=== PATIENT | female | born 1960 | race Asian ===

== ENCOUNTER 2019-07-21 09:19 | Inpatient (IN) | payer MEDICAID ==
[~2019-07-21] VITALS: Ht 152.4 cm; Wt 46.0 kg
[2019-07-21 09:20] VITALS: BP_SYST 101
[2019-07-21] MEDS ORDERED: SODIUM POLYSTYRENE SULFONATE 15 GM/60 ML UDBTL PO ONE (09:45)
[2019-07-21] MEDS ORDERED: NACL 0.9% 1,000 ML IV ONE (09:45)
[2019-07-21] MEDS ORDERED: DEXTROSE 50% JECT 50 ML DISP.SYRIN IVP ONE (09:45)
[2019-07-21] MEDS ORDERED: INSULIN REGULAR, HUMAN 10 UNITS/0.1 ML INJ IVP ONE (09:45)
[2019-07-21 10:17] LABS: BASOPHILS # (AUTO) 0.1 K/uL (0.0-0.2); BASOPHILS % (AUTO) 0.8 % (0.0-2.0); EOSINOPHILS # (AUTO) 0.1 K/uL (0.0-0.4); EOSINOPHILS % (AUTO) 1.2 % (0.0-4.0); HEMATOCRIT 23.2 % (36-48); HEMOGLOBIN 7.7 g/dL (12.0-16.0); LYMPHOCYTES # (AUTO) 1.8 K/uL (1.0-5.5); LYMPHOCYTES % (AUTO) 20.9 % (20.5-51.5); MEAN CORPUSCULAR HEMOGLOBIN 31 pg (27-31); MEAN CORPUSCULAR HGB CONC 33 % (32-36); MEAN CORPUSCULAR VOLUME 94 fL (79.0-98.0); MONOCYTES # (AUTO) 0.4 K/uL (0.0-1.0); MONOCYTES % (AUTO) 4.4 % (1.7-9.3); NEUTROPHILS # (AUTO) 6.2 K/uL (1.8-7.7); NEUTROPHILS % (AUTO) 72.7 % (40.0-70.0); PLATELET COUNT (AUTO) 378 K/uL (130-430); RED BLOOD CELL COUNT(AUTO) 2.48 MIL/uL (4.2-6.2); RED CELL DISTRIBUTION WIDTH 13.3 % (9.0-15.0); WHITE BLOOD COUNT (AUTO) 8.6 K/uL (4.8-10.8)
[2019-07-21 10:35] LABS: ALBUMIN 2.9 g/dL (3.4-4.8); CREATININE 1.27 mg/dL (0.55-1.30); POTASSIUM 4.8 mmol/L (3.5-5.1); TOTAL BILIRUBIN 0.2 mg/dL (0.0-1.0)
[2019-07-21 10:41] LABS: CALCIUM 8.9 mg/dL (8.4-11.0)
[2019-07-21] MEDS ORDERED: 0.45% NACL 1,000 ML IV ONE (14:15)
[2019-07-21] MEDS ORDERED: ARGI1POW13 PO (14:40)
[2019-07-21] MEDS ORDERED: ASCO500T20 PO (14:40)
[2019-07-21] MEDS ORDERED: CAT.1 PO (14:40)
[2019-07-21] MEDS ORDERED: BENZ-16 PO (14:40)
[2019-07-21] MEDS ORDERED: ACET-2165 PO (14:40)
[2019-07-21] MEDS ORDERED: FER300L PO (14:40)
[2019-07-21] MEDS ORDERED: BISA10SU61 RC (14:40)
[2019-07-21] MEDS ORDERED: CALC-823 PO (14:40)
[2019-07-21] MEDS ORDERED: DIPH25CA83 PO (14:40)
[2019-07-21] MEDS ORDERED: DOCU-144 PO (14:40)
[2019-07-21] MEDS ORDERED: DEXT50DI5 IV (14:40)
[2019-07-21 14:48] LABS: BASOPHILS % (AUTO) 0.5 % (0.0-2.0); EOSINOPHILS # (AUTO) 0.1 K/uL (0.0-0.4); EOSINOPHILS % (AUTO) 1.5 % (0.0-4.0); HEMATOCRIT 23.8 % (36-48); HEMOGLOBIN 7.8 g/dL (12.0-16.0); LYMPHOCYTES # (AUTO) 1.5 K/uL (1.0-5.5); LYMPHOCYTES % (AUTO) 20.6 % (20.5-51.5); MEAN CORPUSCULAR HEMOGLOBIN 31 pg (27-31); MEAN CORPUSCULAR HGB CONC 33 % (32-36); MEAN CORPUSCULAR VOLUME 95 fL (79.0-98.0); MONOCYTES # (AUTO) 0.4 K/uL (0.0-1.0); MONOCYTES % (AUTO) 6.1 % (1.7-9.3); NEUTROPHILS # (AUTO) 5.1 K/uL (1.8-7.7); NEUTROPHILS % (AUTO) 71.3 % (40.0-70.0); PLATELET COUNT (AUTO) 349 K/uL (130-430); RED BLOOD CELL COUNT(AUTO) 2.52 MIL/uL (4.2-6.2); RED CELL DISTRIBUTION WIDTH 13.6 % (9.0-15.0); WHITE BLOOD COUNT (AUTO) 7.1 K/uL (4.8-10.8)
[2019-07-21] MEDS ORDERED: [UNRECOGNIZED DRUG - CODE] PO (14:57)
[2019-07-21] MEDS ORDERED: ANT30 PO (14:57)
[2019-07-21] MEDS ORDERED: NOR10 PO (14:57)
[2019-07-21] MEDS ORDERED: INSU100V7 IJ (14:57)
[2019-07-21] MEDS ORDERED: DEXT33GE7 PO (14:57)
[2019-07-21] MEDS ORDERED: ONDA4TAB5 PO (14:57)
[2019-07-21] MEDS ORDERED: FURO-149 PO (14:57)
[2019-07-21] MEDS ORDERED: MOM PO (14:57)
[2019-07-21] MEDS ORDERED: SITA50TA3 PO (14:57)
[2019-07-21] MEDS ORDERED: METO50TA7 PO (14:57)
[2019-07-21] MEDS ORDERED: LURA40TA PO (14:57)
[2019-07-21] MEDS ORDERED: LOM2.5 PO (14:57)
[2019-07-21] MEDS ORDERED: LISI10TA5 PO (14:57)
[2019-07-21] MEDS ORDERED: FLEETMO RC (14:57)
[2019-07-21] MEDS ORDERED: POTA10TA15 PO (14:57)
[2019-07-21] MEDS ORDERED: GLUC1KIT IJ (14:57)
[2019-07-21 14:59] LABS: BILIRUBIN,URINE NEGATIVE (NEGATIVE); BLOOD, URINE TRACE (NEGATIVE); CLARITY/URINE CLEAR (CLEAR); COLOR,URINE YELLOW (YELLOW); GLUCOSE,URINE NEGATIVE (NEGATIVE); KETONES,URINE NEGATIVE (NEGATIVE); LEUKOCYTE ESTERASE ,URINE 3+ (NEGATIVE); NITRITE, URINE POSITIVE (NEGATIVE); PROTEIN URINE 1+ (NEGATIVE); UROBILINOGEN,URINE 0.2 (0.2-1.0)
[2019-07-21 15:03] LABS: ANION GAP 11 (5-15); CALCIUM 8.2 mg/dL (8.4-11.0); CHLORIDE 104 mmol/L (98-107); GLUCOSE 114 mg/dL (70-99); POTASSIUM 4.3 mmol/L (3.5-5.1); SODIUM SERUM 136 mmol/L (136-145); UREA NITROGEN, BLOOD 52 mg/dL (8-21)
[2019-07-21 15:05] LABS: PROTHROMBIN TIME 9.7 SECS (9.5-12.5)
[2019-07-21 15:06] LABS: GFR AFRICAN AMERICAN 73 mL/min (>90)
[2019-07-21 15:08] LABS: ALANINE AMINOTRANSFERASE 18 U/L (12-78); ALBUMIN 2.9 g/dL (3.4-4.8); ASPARTATE AMINOTRANSFERASE 9 U/L (10-37); BILIRUBIN,DIRECT < 0.1 mg/dL (0.0-0.3); TOTAL BILIRUBIN 0.2 mg/dL (0.0-1.0)
[2019-07-21 15:31] LABS: BACTERIA,URINE MODERATE /HPF (None Seen); RBC,URINE 0-3 /HPF (0-3); WBC,URINE 50-80 /HPF (0-3)
[2019-07-21 15:35] LABS: MUCUS,URINE None Seen /LPF (None Seen); URINE AMORPHOUS URATE 3+ /HPF (None Seen)
[2019-07-21] MEDS ORDERED: GLUCOSE 15 GM GEL (in 37.5 GM TUBE) PO PRN ×2 (17:00→22:30)
[2019-07-21] MEDS ORDERED: DEXTROSE 50%-WATER 50 ML DISP.SYRIN IVP PRN (17:00)
[2019-07-21] MEDS ORDERED: D5W 1,000 ML IV PRN ×2 (17:00→22:18)
[2019-07-21 20:14] VITALS: BP_SYST 143
[2019-07-21] MEDS ORDERED: DEXTROSE 50% JECT 50 ML DISP.SYRIN IVP PRN (22:30)
[2019-07-21] MEDS: INSULIN REGULAR, HUMAN 100 UNITS/ML, 10 ML VIAL (humuLIN R) SUBCUT PRN (22:47)
[2019-07-22 01:43] VITALS: BP_SYST 140
[2019-07-22 08:00] VITALS: BP_SYST 140
[2019-07-22] MEDS ORDERED: LEVOFLOXACIN 500 MG TABLET PO ONE (11:30)
[2019-07-22] MEDS: INSULIN REGULAR, HUMAN 100 UNITS/ML, 10 ML VIAL (humuLIN R) SUBCUT PRN ×2 (11:47→23:16)
[2019-07-22] MEDS: NACL 0.9% 1,000 ML IV SCH (11:58)
[2019-07-22 12:29] VITALS: BP_SYST 151
[2019-07-22 14:53] LABS: CALCIUM 8.1 mg/dL (8.4-11.0); CREATININE 0.92 mg/dL (0.55-1.30); POTASSIUM 4.5 mmol/L (3.5-5.1)
[2019-07-22 16:05] VITALS: BP_SYST 141
[2019-07-22 17:34] LABS: URINE SODIUM, RANDOM 60 mmol/L (40-220)
[2019-07-22 20:05] VITALS: BP_SYST 142
[2019-07-23 00:28] VITALS: BP_SYST 150
[2019-07-23] MEDS: NACL 0.9% 1,000 ML IV SCH ×2 (02:15→14:10)
[2019-07-23 07:06] LABS: BASOPHILS % (AUTO) 0.4 % (0.0-2.0); EOSINOPHILS # (AUTO) 0.1 K/uL (0.0-0.4); HEMOGLOBIN 7.2 g/dL (12.0-16.0); LYMPHOCYTES # (AUTO) 1.2 K/uL (1.0-5.5); LYMPHOCYTES % (AUTO) 18.3 % (20.5-51.5); MEAN CORPUSCULAR HEMOGLOBIN 32 pg (27-31); MEAN CORPUSCULAR HGB CONC 34 % (32-36); MEAN CORPUSCULAR VOLUME 94 fL (79.0-98.0); MONOCYTES # (AUTO) 0.3 K/uL (0.0-1.0); MONOCYTES % (AUTO) 4.2 % (1.7-9.3); NEUTROPHILS # (AUTO) 4.9 K/uL (1.8-7.7); NEUTROPHILS % (AUTO) 75.1 % (40.0-70.0); PLATELET COUNT (AUTO) 343 K/uL (130-430); RED BLOOD CELL COUNT(AUTO) 2.29 MIL/uL (4.2-6.2); RED CELL DISTRIBUTION WIDTH 13.3 % (9.0-15.0); WHITE BLOOD COUNT (AUTO) 6.6 K/uL (4.8-10.8)
[2019-07-23 07:18] LABS: HEMATOCRIT 21.4 % (36-48)
[2019-07-23 07:38] LABS: CREATININE 0.9 mg/dL (0.55-1.30); PHOSPHORUS 2.9 mg/dL (2.7-4.5); POTASSIUM 4.5 mmol/L (3.5-5.1)
[2019-07-23 07:57] LABS: TOTAL IRON BIND. CAPACITY 215 ug/dL (250-450)
[2019-07-23 08:12] VITALS: BP_SYST 156
[2019-07-23] MEDS: LEVOFLOXACIN 500 MG TABLET PO SCH (10:58)
[2019-07-23 12:00] VITALS: BP_SYST 152
[2019-07-23] MEDS ORDERED: BISACODYL 10 MG/SUPPOSITORY RC PRN (16:30)
[2019-07-23] MEDS ORDERED: DOCUSATE SODIUM 100 MG CAPSULE PO PRN (16:30)
[2019-07-23] MEDS ORDERED: cloNIDine HCL 0.1 MG TABLET PO PRN (16:30)
[2019-07-23] MEDS ORDERED: amLODIPine BESYLATE 10 MG TABLET PO ONE (16:30)
[2019-07-23 16:52] VITALS: BP_SYST 164
[2019-07-23 17:59] LABS: CREATININE, URINE 14.6 mg/dL; MICROALBUMIN URINE RANDOM 266.4 ug/ml (NOT ESTABLISHED); MICROALBUMIN/CREAT RATIO, UR 1824.7 MG/G CRE (0.0-30.0)
[2019-07-23] MEDS: MUPIROCIN 2% TOPICAL OINTMENT 22 GM NS SCH (21:00)
[2019-07-23 21:15] VITALS: BP_SYST 151
[2019-07-23] MEDS: FERROUS SULFATE 325 MG TABLET.DR PO SCH (22:12)
[2019-07-24 00:16] VITALS: BP_SYST 144
[2019-07-24] MEDS: NACL 0.9% 1,000 ML IV SCH ×2 (03:30→16:01)
[2019-07-24 06:11] LABS: FOLATE (FOLIC ACID) 16.4 ng/mL (>3.0)
[2019-07-24 06:57] LABS: BASOPHILS % (AUTO) 0.4 % (0.0-2.0); EOSINOPHILS # (AUTO) 0.3 K/uL (0.0-0.4); EOSINOPHILS % (AUTO) 3.4 % (0.0-4.0); HEMATOCRIT 34.8 % (36-48); HEMOGLOBIN 11.6 g/dL (12.0-16.0); LYMPHOCYTES # (AUTO) 2.4 K/uL (1.0-5.5); LYMPHOCYTES % (AUTO) 24.4 % (20.5-51.5); MEAN CORPUSCULAR HEMOGLOBIN 31 pg (27-31); MEAN CORPUSCULAR HGB CONC 34 % (32-36); MEAN CORPUSCULAR VOLUME 92 fL (79.0-98.0); MONOCYTES # (AUTO) 0.5 K/uL (0.0-1.0); MONOCYTES % (AUTO) 4.7 % (1.7-9.3); NEUTROPHILS # (AUTO) 6.6 K/uL (1.8-7.7); NEUTROPHILS % (AUTO) 67.1 % (40.0-70.0); PLATELET COUNT (AUTO) 357 K/uL (130-430); RED BLOOD CELL COUNT(AUTO) 3.78 MIL/uL (4.2-6.2); RED CELL DISTRIBUTION WIDTH 14.1 % (9.0-15.0); WHITE BLOOD COUNT (AUTO) 9.8 K/uL (4.8-10.8)
[2019-07-24 07:13] LABS: CALCIUM 8.7 mg/dL (8.4-11.0); CREATININE 0.84 mg/dL (0.55-1.30); POTASSIUM 4.2 mmol/L (3.5-5.1)
[2019-07-24 07:55] VITALS: BP_SYST 168
[2019-07-24] MEDS: MUPIROCIN 2% TOPICAL OINTMENT 22 GM NS SCH ×3 (09:00→21:28)
[2019-07-24 09:06] LABS: A/G RATIO 0.7 (0.7-1.7); ALBUMIN 3.1 g/dL (2.9-4.4); ALPHA-1-GLOBULIN 0.4 g/dL (0.0-0.4); BETA GLOBULIN 1.1 g/dL (0.7-1.3); GLOBULIN, TOTAL 4.4 g/dL (2.2-3.9); M-SPIKE Not Observed g/dL (Not Observed)
[2019-07-24] MEDS: ASCORBIC ACID 500 MG TABLET PO SCH (10:01)
[2019-07-24] MEDS: CALCIUM CARBONATE/VITAMIN D3 1 TAB TABLET PO SCH (10:01)
[2019-07-24] MEDS: FERROUS SULFATE 325 MG TABLET.DR PO SCH ×3 (10:01→21:29)
[2019-07-24] MEDS: LEVOFLOXACIN 500 MG TABLET PO SCH (10:01)
[2019-07-24] MEDS: amLODIPine BESYLATE 10 MG TABLET PO SCH (10:06)
[2019-07-24 12:25] VITALS: BP_SYST 158
[2019-07-24 17:03] VITALS: BP_SYST 153
[2019-07-24] MEDS: NITROFURANTOIN MONOHYD/M-CRYST 100 MG CAPSULE PO SCH ×2 (21:00→21:29)
[2019-07-24] MEDS: INSULIN REGULAR, HUMAN 100 UNITS/ML, 10 ML VIAL (humuLIN R) SUBCUT PRN (21:34)
[2019-07-24 21:40] VITALS: BP_SYST 161
[2019-07-25 01:31] VITALS: BP_SYST 160
[2019-07-25] MEDS: NACL 0.9% 1,000 ML IV SCH (06:28)
[2019-07-25 07:28] LABS: BASOPHILS % (AUTO) 0.4 % (0.0-2.0); EOSINOPHILS # (AUTO) 0.2 K/uL (0.0-0.4); EOSINOPHILS % (AUTO) 2.8 % (0.0-4.0); HEMATOCRIT 31.3 % (36-48); HEMOGLOBIN 10.7 g/dL (12.0-16.0); LYMPHOCYTES # (AUTO) 1.5 K/uL (1.0-5.5); LYMPHOCYTES % (AUTO) 18.2 % (20.5-51.5); MEAN CORPUSCULAR HEMOGLOBIN 31 pg (27-31); MEAN CORPUSCULAR HGB CONC 34 % (32-36); MEAN CORPUSCULAR VOLUME 91 fL (79.0-98.0); MONOCYTES # (AUTO) 0.4 K/uL (0.0-1.0); MONOCYTES % (AUTO) 4.5 % (1.7-9.3); NEUTROPHILS % (AUTO) 74.1 % (40.0-70.0); PLATELET COUNT (AUTO) 342 K/uL (130-430); RED BLOOD CELL COUNT(AUTO) 3.42 MIL/uL (4.2-6.2); RED CELL DISTRIBUTION WIDTH 13.9 % (9.0-15.0)
[2019-07-25 07:56] LABS: ALBUMIN 2.9 g/dL (3.4-4.8); CALCIUM 9.1 mg/dL (8.4-11.0); CREATININE 0.79 mg/dL (0.55-1.30); POTASSIUM 3.8 mmol/L (3.5-5.1); TOTAL BILIRUBIN 0.3 mg/dL (0.0-1.0)
[2019-07-25 08:00] VITALS: BP_SYST 172
[2019-07-25] MEDS: LEVOFLOXACIN 500 MG TABLET PO SCH (09:15)
[2019-07-25] MEDS: ASCORBIC ACID 500 MG TABLET PO SCH (09:17)
[2019-07-25] MEDS: MUPIROCIN 2% TOPICAL OINTMENT 22 GM NS SCH (09:17)
[2019-07-25] MEDS: CALCIUM CARBONATE/VITAMIN D3 1 TAB TABLET PO SCH (09:17)
[2019-07-25] MEDS: amLODIPine BESYLATE 10 MG TABLET PO SCH (09:17)
[2019-07-25] MEDS: FERROUS SULFATE 325 MG TABLET.DR PO SCH (09:17)
[2019-07-25 12:00] VITALS: BP_SYST 148; BP_SYST 152
[2019-07-25 14:10] VITALS: BP_SYST 154
[2019-07-25] MEDS ORDERED: LEVO750T45 PO (14:19)
[2019-07-25 14:20] VITALS: BP_SYST 154
== END 2019-07-25 16:00 | DRG 470 ==
LOC: SED 09:19 → STU 14:24 → SMU 07-24 20:45
PROVIDERS: ADMIT Internal Medicine; ATTEND Internal Medicine
PROC: 30233N1 Transfusion of Nonautologous Red Blood Cells into Peripheral Vein, Percutaneous Approach (ICD-10-PCS; principal; 2019-07-23)
DX: I12.9 Hypertensive chronic kidney disease with stage 1 through stage 4 chronic kidney disease, or unspecified chronic kidney disease (principal); E43 Unspecified severe protein-calorie malnutrition; E11.22 Type 2 diabetes mellitus with diabetic chronic kidney disease; E87.5 Hyperkalemia; E11.51 Type 2 diabetes mellitus with diabetic peripheral angiopathy without gangrene; N39.0 Urinary tract infection, site not specified; D63.1 Anemia in chronic kidney disease; N18.9 Chronic kidney disease, unspecified; E78.5 Hyperlipidemia, unspecified; F29 Unspecified psychosis not due to a substance or known physiological condition; F41.9 Anxiety disorder, unspecified; F79 Unspecified intellectual disabilities; H54.8 Legal blindness, as defined in USA; Z68.1 Body mass index [BMI] 19.9 or less, adult; Z79.899 Other long term (current) drug therapy; Z89.421 Acquired absence of other right toe(s)
CPT/HCPCS: 36415; 80048; 80053; 81000-TC; 82043; 82248-TC; 82272; 82570; 82570-TC; 82607; 82728; 82746; 82962; 83540-TC; 83550-TC; 83735-TC; 84100-TC; 84155; 84165; 84302-TC; 84550-TC; 85025; 85610-TC; 85730-TC; 86886; 86900; 86901; 86920; 87081; 87086; 87186-TC; 93005; 96361; 96374; 96375; 99285; G0378; J1815; J7030; J7050; P9021